=== PATIENT | male | born 1970 | race Two or more races ===

== ENCOUNTER 2016-12-24 08:41 | Day surgery (SDC) | payer BC, OTHER ==
[~2016-12-24] VITALS: Ht 157.5 cm; Wt 72.1 kg
--- NOTE | ~2016-12-24 | OP ---
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 OPERATION PERFORMED: Today, implantation of a PTFE, AV graft between the brachial artery above the antecubital space and the axillary vein. The PTFE graft was a 6-mm straight standard wall thickness [place] Propaten heparin-bonded PTFE graft. ANESTHESIA: General with LMA per [employer]. REFERRING PHYSICIAN: Dr. Sudarshan Estes. PROCEDURE: With the patient under anesthesia and in a supine position, he was prepped and draped in a sterile manner. I examined the left arm after applying a venous tourniquet and applying topical nitroglycerin paste to the arm and forearm. I examined him with ultrasound and found pretty much the same findings as had been noted on his venogram earlier this week at [facility]. He basically had no veins in the forearm which were suitable for fistula, perhaps excluding the median antebrachial vein which was satisfactory and could have been used to create a proximal radial artery based AV fistula; however, that fistula would have had minimal proximal venous runoff and would have depended entirely on the retrograde flow component and the veins in the forearm were extremely small and I thought this might not work anytime soon. The basilic vein was about a 0.5 centimeter in diameter. It trifurcated at a point a little higher than usual above the level of the antecubital space. It could possibly be used for a translocated basilic vein fistula; however, I thought the patient really needed a long-term access sooner, so we can get his tunneled dialysis catheter out of the right internal jugular vein. I also noted that the cephalic vein in the arm above the antecubital space was quite small. There is actually a median cubital vein which might have been used for a graft, but again the runoff would have been very limited as this vessel did not seem to run off to the basilic at all, but only to a small cephalic, so I elected to go ahead and put in the graft. An incision was made in the axilla and the axillary vein exposed and controlled with Silastic loops. A longitudinal incision was made in hockey stick into the antecubital and the brachial artery was exposed and controlled with Silastic loops. The brachial artery is quite atherosclerotic. The graft, a 6-mm [place] Propaten graft, was beveled and anastomosed end-to-side to the axillary vein with running 6-0 Prolene and with regional heparinization with dilute heparin saline flushes in the axillary vein. The suture line was hemostatic. The graft was placed in a tunnel, which curved out laterally and then back medially to the brachial artery site. It was very close to the skin and will be easily palpable for almost its entire course. The graft was shortened, beveled, flushed with heparinized saline. The artery was occluded and opened and flushed with heparinized saline for proximal regional heparinization. The graft was sutured to the artery with running 6-0 Prolene. That suture line was treated with Evicel and was hemostatic when the clamps and loops were released. Excellent OPERATIVE REPORT [id number] JAMES MONIQUE flow developed in the graft immediately. There was no bleeding and I documented good Doppler pulsatile, continuous flow signals in the axillary vein above the anastomosis and in the brachial artery above and below the anastomosis. At the wrist, the ulnar and radial arteries both maintained pulsatile flow with good amplitude, although of course there was improvement when the graft was digitally occluded. I thought that this was a good result and is unlikely the patient will have any steal symptoms. The wounds were irrigated with Ancef/gentamicin solution and infiltrated with 0.25% Marcaine with epinephrine. They were then closed with interrupted inverted 3-0 Vicryl sutures and running intracuticular 4-0 Monocryl. They were closed and sealed with Dermabond glue and dressed with Maxorb AG and Tegaderm with Cavilon skin prep. He was awakened and taken to the recovery room. Note, there was about 15 mL blood loss during the procedure and none was replaced. All sponges, instruments and needles were accounted for. No drain was used and no surgical specimen was submitted for histopathology. The patient did have problems with wheezing and apparent bronchospasm after induction of anesthesia and placement of the LMA and this was treated by the perioperative nurse periodically throughout the operation. He still seemed to be in some respiratory distress at the end of the procedure. There was no other evidence of allergic reaction and there is no history of asthma or other pulmonary complaints. By the time he reached the recovery room; however, his chest was completely clear with normal breath sounds bilaterally. His O2 sat in the recovery room with O2 supplementation was 100% and was in no respiratory distress whatsoever. PLAN: The patient will be observed in the recovery room and then again in outpatient department for a while. He will be allowed to resume a diabetic renal diet and of course will check a blood sugar now in the recovery room. He will be allowed to go home and will be given a prescription for [place] 5/325, #20 and is to have an appointment to see me in my office in about 2 weeks. I expect that the new AV graft will be able to used shortly after that visit and hopefully he then can be scheduled for removal of his tunneled dialysis catheter. TRANSINT:[id number] Voice Confirmation ID: [id number] DOCUMENT ID: [id number] JI MARR MD CC: SUDARSHAN ESTES MD [id number] DICTATION DATE: 12/24/16 1624 PATIENT FINANCIAL SERVICES MANAGER: 12/25/16 0101 [facility] 12/24/16 [facility] [address] [place] [address]
[2016-12-24] MEDS ORDERED: FUROSEMIDE40 MG PO (09:37)
[2016-12-24] MEDS ORDERED: PHOSLO667 MG PO (09:38)
[2016-12-24] MEDS ORDERED: METOPROLOL TART50 MG PO (09:39)
[2016-12-24] MEDS ORDERED: LEVEMIR INJ FLE SQ (09:41)
[2016-12-24] MEDS ORDERED: HUMALOG KWIK INJ 100 SQ (09:41)
[2016-12-24 09:52] VITALS: Ht 157.5 cm; Wt 72.1 kg
[2016-12-24 11:22] LABS: BASOPHILS 1.1 % (0-2); EOSINOPHILS 3.7 % (0-7); HEMATOCRIT 38.2 % (42.0-54.0); HEMOGLOBIN 11.9 g/dL (13.5-17.5); IMMATURE GRANULOCYTES 0.2 % (0-5); LYMPHOCYTES 22.2 % (15-50); MCH 30.7 pg (26.0-34.0); MCHC 31.2 g/dL (31.0-37.0); MCV 98.5 fL (80.0-100.0); MEAN PLATELET VOLUME 10.4 fL (7.4-10.4); MONOCYTES 7.3 % (2-11); NEUTROPHILS 65.5 % (40-80); PLATELET COUNT 206 10x3/uL (130-400); RBC 3.88 10x6/uL (4.20-6.10); RDW 16.4 % (11.5-14.5); WBC 5.6 10x3/uL (4.8-10.8)
[2016-12-24 11:31] LABS: ANION GAP 12.5 mmol/L (8-16); CALCIUM 9.2 mg/dL (8.5-10.1); CARBON DIOXIDE 28.9 mmol/L (21.0-32.0); CREATININE - SERUM 5.9 mg/dL (0.6-1.3); INR 1.01 (0.85-1.17); POTASSIUM - SERUM 4.4 mmol/L (3.5-5.1); PROTIME 13.2 SECONDS (11.6-15.0)
[2016-12-24 11:32] LABS: APTT 30.9 SECONDS (22.8-39.4)
--- NOTE | 2016-12-24 16:28 | NUR ---
fsbs 241 MG/dL. Anesthesia advised no treatment at this time.
[2016-12-24] MEDS ORDERED: HYDROCODON-ACE1 EAC7 PO (16:32)
--- NOTE | 2016-12-24 17:52 | NUR ---
IV DC WITH CATHER TIP INTACT
== END 2016-12-24 18:00 | disposition home or self-care (01) ==
LOC: D.OPS 08:41
PROVIDERS: Internal Medicine Nephrology
DX: E11.22 Type 2 diabetes mellitus with diabetic chronic kidney disease (principal); I12.0 Hypertensive chronic kidney disease with stage 5 chronic kidney disease or end stage renal disease; N18.6 End stage renal disease; Z99.2 Dependence on renal dialysis; Z01.812 Encounter for preprocedural laboratory examination

== ENCOUNTER 2019-03-16 08:56 | Day surgery (SDC) | payer BC, OTHER ==
[~2019-03-16] VITALS: Ht 157.5 cm; Wt 74.8 kg
[~2019-03-16 08:56] MED LIST: FUROSEMIDE40 MG PO; HUMALOG KWIK INJ 100 SQ; HYDROCODON-ACE1 EAC7 PO; LEVEMIR INJ FLE SQ; METOPROLOL TART50 MG PO; PHOSLO667 MG PO
[2019-03-16 09:34] LABS: BASOPHILS 1.3 % (0-2); EOSINOPHILS 8.6 % (0-7); HEMOGLOBIN 10.6 g/dL (13.5-17.5); IMMATURE GRANULOCYTES 0.2 % (0-5); LYMPHOCYTES 22.2 % (15-50); MCH 31.6 pg (26.0-34.0); MCHC 32.1 g/dL (31.0-37.0); MCV 98.5 fL (80.0-100.0); MEAN PLATELET VOLUME 10.7 fL (7.4-10.4); NEUTROPHILS 55.7 % (40-80); RBC 3.35 10x6/uL (4.20-6.10); RDW 14.7 % (11.5-14.5); WBC 5.5 10x3/uL (4.8-10.8)
[2019-03-16 09:36] LABS: PLATELET COUNT 157 10x3/uL (130-400)
[2019-03-16 09:42] LABS: INR 1.03 (0.85-1.17)
[2019-03-16 09:57] LABS: ANION GAP 16.3 mmol/L (8-16); CALCIUM 9.5 mg/dL (8.5-10.1); CREATININE - SERUM 5.3 mg/dL (0.6-1.3); POTASSIUM - SERUM 5.3 mmol/L (3.5-5.1)
[2019-03-16] MEDS ORDERED: METOPROLOL TART50 MG PO (10:42)
[2019-03-16] MEDS ORDERED: GABAPENTIN100 MG PO (10:42)
[2019-03-16] MEDS ORDERED: PROTONIX20 MG PO (10:43)
[2019-03-16] MEDS ORDERED: NORVASC5 MG PO (10:44)
[2019-03-16] MEDS ORDERED: ZOLOFT50 MG PO (10:45)
[2019-03-16] MEDS ORDERED: DIFLUCAN150 MG PO (10:45)
[2019-03-16] MEDS ORDERED: TRAZODONE HCL150 MG PO (10:46)
[2019-03-16] MEDS ORDERED: [UNRECOGNIZED DRUG - OTHER] PO (10:46)
[2019-03-16] MEDS ORDERED: NOVOLOG100 UNIT/1 SC (10:47)
[2019-03-16 11:00] VITALS: Ht 157.5 cm; Wt 74.8 kg
== END 2019-03-16 18:25 | disposition home or self-care (01) ==
LOC: D.OPS 08:56
PROVIDERS: Surgery; ATTEND Internal Medicine
DX: T82.898A Other specified complication of vascular prosthetic devices, implants and grafts, initial encounter (principal); N18.6 End stage renal disease; Z99.2 Dependence on renal dialysis; Z01.812 Encounter for preprocedural laboratory examination